=== PATIENT | female | born 1990 | race American Indian/Alaskan Native ===

== ENCOUNTER 2016-06-21 03:47 | Emergency (ER) | payer OTHER ==
[2016-06-21 03:58] VITALS: TEMP 98.2; O2SAT 100
[2016-06-21 04:00] VITALS: BMI 31.9
--- NOTE | 2016-06-21 04:00 | ED PDOC ---
Arrival/HPI - General Time Seen by Provider: 06/21/16 03:53 Historian: Patient - History of Present Illness Narrative History of Present Illness (Text): 06/21/16 03:59 Tanja Rosen is a 25 year old female, with no significant past medical history, currently 10 weeks , who presents to the Emergency department complaining of upper abdominal discomfort for the past 2 days. Patient reports associated cough and nasal congestion. Patient states relative was recently ill with similar symptoms. Patient denies any fever, chills, chest pain, shortness of breath, nausea, vomiting, diarrhea, urinary symptoms, back pain, neck pain, headache, dizziness, or any other complaints. Time/Duration: < week (2 days) Symptom Onset: Gradual Symptom Course: Unchanged Severity Level: Mild Activities at Onset: Rest, Light Context: Home Past Medical History - Provider Review Nursing Documentation Reviewed: Yes - Infectious Disease Hx of Infectious Diseases: None - Psychiatric Hx Substance Use: No - Surgical History Other/Comment: cyst on saccrum - Anesthesia Hx Anesthesia: No Hx Anesthesia Reactions: No Hx Malignant Hyperthermia: No Family/Social History - Physician Review Nursing Documentation Reviewed: Yes Family/Social History: No Known Family HX Smoking Status: Never Smoked Hx Alcohol Use: No Hx Substance Use: No Allergies/Home Meds Allergies/Adverse Reactions: Allergies No Known Allergies Allergy (Verified 11/03/15 01:29) Review of Systems - Physician Review All systems were reviewed & negative as marked: Yes - Review of Systems Constitutional: Normal. absent: Fevers Eyes: Normal ENT: Sinus Congestion (+nasal congestion) Respiratory: Cough. absent: SOB Cardiovascular: Normal Gastrointestinal: Abdominal Pain Genitourinary Female: Normal. absent: Dysuria, Frequency, Hematuria, Urine Output Changes Musculoskeletal: Normal. absent: Back Pain, Neck Pain Skin: Normal. absent: Rash Neurological: Normal. absent: Headache, Dizziness Endocrine: Normal Hemo/Lymphatic: Normal Psychiatric: Normal Physical Exam Vital Signs Reviewed: Yes Vital Signs Temp Pulse Resp BP Pulse Ox 06/21/16 05:09 86 18 142/80 100 06/21/16 03:57 98.2 F 87 17 147/82 100 Temperature: Afebrile Blood Pressure: Normal Pulse: Regular Respiratory Rate: Normal Appearance: Positive for: Well-Appearing, Non-Toxic, Comfortable Pain Distress: None Mental Status: Positive for: Alert and Oriented X 3 - Systems Exam Head: Present: Atraumatic, Normocephalic Pupils: Present: PERRL Extroacular Muscles: Present: EOMI Conjunctiva: Present: Normal Mouth: Present: Moist Mucous Membranes Neck: Present: Normal Range of Motion Respiratory/Chest: Present: Clear to Auscultation, Good Air Exchange. No: Respiratory Distress, Accessory Muscle Use Cardiovascular: Present: Regular Rate and Rhythm, Normal S1, S2. No: Murmurs Abdomen: Present: Normal Bowel Sounds. No: Tenderness, Distention, Peritoneal Signs Back: Present: Normal Inspection Upper Extremity: Present: Normal Inspection. No: Cyanosis, Edema Lower Extremity: Present: Normal Inspection. No: Edema Neurological: Present: GCS=15, CN II-XII Intact, Speech Normal Skin: Present: Warm, Dry, Normal Color. No: Rashes Psychiatric: Present: Alert, Oriented x 3, Normal Insight, Normal Concentration Medical Decision Making ED Course and Treatment: 06/21/16 03:59 Impression: 25 year old female complaining of upper abdominal discomfort, cough, and nasal congestion for 2 days. Differential Diagnosis include but are not limited to: URI vs. influenza vs. viral syndrome Plan: -- Labs, lipase -- Rapid influenza -- Urinalysis -- Reassess and disposition Progress Notes: 06/21/16 04:55 Reviewed labs, no acute abnormalities, negative influenza. On re-evaluation, the patient feels better and is in no acute distress. I have discussed the results and plan with the patient, who expresses understanding. Patient in agreement with plan to discharged home. Patient is stable for discharge. Patient was instructed to follow up with physician/clinic in 1-2 days or return if symptoms worsen or new concerning symptoms arise. Re-evaluation Time: 04:56 Reassessment Condition: Re-examined, Improved - Lab Interpretations Microbiology Results: Microbiology Results 06/21/16 04:08 Urine,Clean Catch Urine Culture - Preliminary Gram Negative Carlos Lab Results: 06/21/16 04:08 06/21/16 04:08 Lab Results 06/21/16 04:08: WBC 7.4, RBC 4.49, Hgb 10.8 L, Hct 30.6 L, MCV 68.2 L, MCH 24.1 L, MCHC 35.3, RDW 17.1 H, Plt Count 251, MPV 9.7, Gran % 72.7 H, Lymph % (Auto) 17.4 L, [place] % (Auto) 8.9 H, Eos % (Auto) 0.7 L, Baso % (Auto) 0.3, Gran # 5.41 , Lymph # 1.3, [place] # 0.7 H, Eos # 0.1, Baso # 0.02, Sodium 135, Potassium 3.6, Chloride 100, Carbon Dioxide 24, Anion Gap 15, BUN 5 L, Creatinine 0.5, Est GFR ( Amer) > 60, Est GFR (Non-Af Amer) > 60, Random Glucose 104, Calcium 9.2 , Total Bilirubin 0.4, AST 32, ALT 17, Alkaline Phosphatase 62, Total Protein 8.3, Albumin 4.1, Globulin 4.2, Albumin/Globulin Ratio 1.0 L, Lipase 110, Urine Color Yellow, Urine Appearance Slight-cloudy, Urine pH 7.0, Ur Specific [place] 1.015, Urine Protein Negative, Urine Glucose (UA) Negative, Urine Ketones Negative, Urine Blood Negative, Urine Nitrate Negative, Urine Bilirubin Negative , Urine Urobilinogen 0.2, Ur Leukocyte Esterase Moderate H, Urine RBC 0 - 2, Urine WBC 5 - 10, Ur Epithelial Cells 1 - 3, Urine Bacteria Small, Urine Other Uyeast, Urine HCG, Qual Positive, Influenza Typ A,B (EIA) Negative for flu a/b I have reviewed the lab results: Yes - Medication Orders Current Medication Orders: Discontinued Medications Cephalexin Monohydrate (Keflex) 500 mg PO STAT STA PRN Reason: Protocol Stop: 06/21/16 05:00 Last Admin: 06/21/16 05:04 Dose: 500 MG - Scribe Statement The provider has reviewed the documentation as recorded by the Cornell Ramirez Provider Attestation: All medical record entries made by the Cornell were at my direction and personally dictated by me. I have reviewed the chart and agree that the record accurately reflects my personal performance of the history, physical exam, medical decision making, and the department course for this patient. I have also personally directed, reviewed, and agree with the discharge instructions and disposition. Disposition/Present on Arrival - Present on Arrival Any Indicators Present on Arrival: No History of DVT/PE: No History of Uncontrolled Diabetes: No Urinary Catheter: No History Surgical Site Infection Following: None - Disposition Have Diagnosis and Disposition been Completed?: Yes Diagnosis: Upper respiratory infection Disposition: HOME/ ROUTINE Disposition Time: 04:56 Condition: GOOD Discharge Instructions (ExitCare): Upper Respiratory Infection (ED) Prescriptions: Cephalexin [Keflex] 500 mg PO BID #14 capsule
[2016-06-21 04:26] LABS: BASO # 0.02 K/mm3 (0.0-2.0); BASO % 0.3 % (0.0-3.0); EOS # 0.1 (0.0-0.7); EOS % 0.7 % (1.5-5.0); GRAN # 5.41 (1.4-6.5); GRAN % 72.7 % (50.0-68.0); HEMATOCRIT 30.6 % (36.0-48.0); LYMPH # 1.3 (1.2-3.4); LYMPH % 17.4 % (22.0-35.0); MEAN CELL VOLUME 68.2 fL (80.0-105.0); MEAN CORPUSCULAR HEMOGLOBIN 24.1 pg (25.0-35.0); MEAN CORPUSCULAR HGB CONC 35.3 g/dl (31.0-37.0); MEAN PLATELET VOLUME 9.7 fl (7.0-11.0); MONO # 0.7 (0.1-0.6); MONO % 8.9 % (1.0-6.0); PLATELET COUNT 251 10^3/uL (120.0-450.0); RED CELL DISTRIBUTION WIDTH 17.1 % (11.5-14.5); WHITE BLOOD COUNT 7.4 10^3/ul (4.5-11.0)
[2016-06-21 04:27] LABS: URINE BILIRUBIN NEGATIVE (NEGATIVE); URINE BLOOD NEGATIVE (NEGATIVE); URINE GLUCOSE (UA) NEGATIVE (NEGATIVE); URINE KETONE NEGATIVE (NEGATIVE); URINE LEUKOCYTE ESTERASE MODERATE Leu/uL (NEGATIVE); URINE PROTEIN NEGATIVE mg/dL (<30 mg/dL); URINE UROBILINOGEN 0.2 E.U./dL (<1 E.U./dL)
[2016-06-21 04:34] LABS: URINE APPEARANCE SLIGHT-CLOUDY (CLEAR); URINE COLOR YELLOW (YELLOW)
[2016-06-21 04:39] LABS: URINE BACTERIA SMALL (NEG); URINE RBC 0 - 2 /hpf (0-2)
[2016-06-21 04:42] LABS: ALKALINE PHOSPHATASE 62 U/L (38-133); ALT/SGPT 17 U/L (7-56); AST/SGOT 32 U/L (15-39); BILIRUBIN,TOTAL 0.4 mg/dL (0.2-1.3); BLOOD UREA NITROGEN 5 mg/dL (7-21); CALCIUM 9.2 mg/dL (8.4-10.5); CARBON DIOXIDE 24 mmol/L (21-33); CHLORIDE 100 mmol/L (98-107); GFR AFRICAN-AMERICAN > 60; GLUCOSE,RANDOM 104 mg/dL (70-110); LIPASE 110 U/L (23-300); POTASSIUM 3.6 mmol/L (3.6-5.0); SODIUM 135 mmol/L (132-148); TOTAL PROTEIN 8.3 g/dL (5.8-8.3)
[2016-06-21 05:10] VITALS: BP 142/80; PULSE 86; RESP 18
[2016-06-21 07:14] LABS: ADD MANUAL DIFF? NO
== END 2016-06-21 05:10 | disposition home or self-care (01) ==
LOC: ED 03:47
DX: J06.9 Acute upper respiratory infection, unspecified (principal)